=== PATIENT | female | born 1990 | race Caucasian/White ===

== ENCOUNTER 2024-07-19 10:11 | Emergency (ER) | payer OTHER ==
[~2024-07-19] VITALS: Ht 162.6 cm; Wt 75.6 kg
[2024-07-19] MEDS ORDERED: SEMA2PEN SQ (10:27)
[2024-07-19] MEDS ORDERED: LISI40TA4 PO (10:27)
[2024-07-19] MEDS ORDERED: ABIL1TAB13 PO (10:27)
[2024-07-19] MEDS ORDERED: ROSU20TA61 PO (10:27)
[2024-07-19] MEDS ORDERED: DULO1CAP6 PO (10:27)
[2024-07-19 12:00] LABS: BASO % 0.7 % (0.0-1.0); EOS # 0.1 10^3/uL (0.0-0.5); EOS % 0.9 % (0.0-3.0); HEMATOCRIT 42.7 % (36.0-47.0); LYMPH # 1.7 10^3/uL (1.5-5.0); LYMPH % 30.1 % (24.0-44.0); MEAN CORPUSCULAR HEMOGLOBIN 30.4 pg (27.0-33.0); MEAN CORPUSCULAR HGB CONC 32.8 g/dl (32.0-36.5); MEAN CORPUSCULAR VOLUME 92.8 fl (80.0-96.0); MONO # 0.3 10^3/uL (0.0-0.8); MONO % 5.8 % (2.0-8.0); NEUTROPHILS # 3.5 10^3/uL (1.5-8.5); NEUTROPHILS % 62.3 % (36.0-66.0); PLATELET COUNT, AUTOMATED 312 10^3/uL (150-450); WHITE BLOOD COUNT 5.5 10^3/uL (4.0-10.0)
[2024-07-19 12:26] LABS: ALBUMIN 4.3 G/DL (3.2-5.2); ALKALINE PHOSPHATASE 104 U/L (46-116); ALT/SGPT 81 U/L (7.0-40); AST/SGOT 28 U/L (<34); BILIRUBIN,TOTAL 0.5 MG/DL (0.3-1.2); BLOOD UREA NITROGEN 9 MG/DL (9-23); CALCIUM LEVEL 10.3 MG/DL (8.5-10.1); CARBON DIOXIDE LEVEL 29 MMOL/L (20-31); CHLORIDE LEVEL 106 MMOL/L (98-107); CREATININE FOR GFR 0.73 MG/DL (0.55-1.30); GLOMERULAR FILTRATION RATE > 60.0 (>60); GLUCOSE, FASTING 92 MG/DL (60-100); POTASSIUM SERUM 4.6 MMOL/L (3.5-5.1); SODIUM LEVEL 139 MMOL/L (136-145); TOTAL PROTEIN 7.4 G/DL (5.7-8.2)
[2024-07-19 12:31] LABS: HCG, SERUM QUALITATIVE NEGATIVE (NEGATIVE)
[2024-07-19] MEDS: GABAPENTIN 300 MG CAP PO ONE (12:41)
[2024-07-19 13:56] VITALS: BP 129/79; TEMP 97.5; O2SAT 98
[2024-07-19] MEDS ORDERED: GABA-282 PO (14:25)
[2024-07-19] MEDS ORDERED: CARB20TA PO ×2 (14:25→14:28)
== END 2024-07-19 14:44 | disposition home or self-care (01) ==
LOC: M ED 10:11
DX: G50.0 Trigeminal neuralgia (principal); E11.9 Type 2 diabetes mellitus without complications; I10 Essential (primary) hypertension; E78.00 Pure hypercholesterolemia, unspecified; F41.9 Anxiety disorder, unspecified; F32.A Depression, unspecified; Z88.0 Allergy status to penicillin; Z88.1 Allergy status to other antibiotic agents; Z79.899 Other long term (current) drug therapy